=== PATIENT | male | born 1955 | race Caucasian/White ===

== ENCOUNTER 2018-05-29 09:29 | Observation (INO) | payer BC, OTHER ==
[2018-05-29] MEDS ORDERED: Nitroglycerin 0.4 MG TAB (25 Tab Bottle) ONE (09:47)
[2018-05-29 09:54] LABS: #Basophils 0.1 thou/uL (0.0-0.2); #Eosinphils 0.3 thou/uL (0.0-0.7); #Lymphocytes 1.7 thou/uL (1.20-3.40); #Monocytes 0.5 thou/uL (0.11-0.59); #Neutrophils 4.6 thou/uL (1.40-6.50); %Basophils 1.1 % (0.0-1.0); %Lymphocytes 23.4 % (21.0-51.0); %Monocytes 7.4 % (0.0-10.0); %Neutrophils 64.2 % (42.0-75.0); Hemoglobin 13.2 g/dL (14.0-18.0); Mean Corpuscular HGB CONC 32.5 g/dL (32.0-36.0); Mean Corpuscular Hemoglobin 30.3 pg (27.0-31.0); Mean Corpuscular Volume 93.2 fL (78.0-98.0); Platelet Count 283 thou/uL (130-400); RBC Distribution Width 12.8 % (11.5-14.5); Red Blood Cell (RBC) Count 4.38 mill/uL (4.70-6.10); White Blood Cell (WBC) Count 7.2 thou/uL (4.8-10.8)
[2018-05-29] MEDS ORDERED: Nitroglycerin 2% Ointment 1 INCH/1 GM Packet ONE (10:09)
[2018-05-29 10:15] LABS: ALT (SGPT) 18 U/L (8-55); AST (SGOT) 17 U/L (5-34); Albumin 3.9 g/dL (3.4-4.8); Alkaline Phosphatase 90 U/L (40-150); Anion Gap 11 mmol/L (10-20); BUN (Urea Nitrogen) 10 mg/dL (8.4-25.7); Bilirubin, Total 0.6 mg/dL (0.2-1.2); CK (CPK) 38 U/L (30-200); Calc. Creatinine Clearance 0 mL/min (70-130); Calcium 9.6 mg/dL (7.8-10.44); Carbon Dioxide 30 mmol/L (23-31); Chloride 103 mmol/L (98-107); Estimated GFR-MDRD Greater than 90; Globulin 2.7 g/dL (2.4-3.5); Glucose 121 mg/dL (80-115); Lipase 55 U/L (8-78); Potassium 4.4 mmol/L (3.5-5.1); Protein, Total 6.6 g/dL (5.8-8.1); Sodium 140 mmol/L (136-145)
[2018-05-29 10:19] LABS: Troponin I 0.012 ng/mL (< 0.028)
--- NOTE | 2018-05-29 10:23 | RAD ---
FRONTAL VIEW CHEST: Indication: Chest pain. Comparison: None. FINDINGS: There is no lobar consolidation or pneumothorax. Patchy bilateral perihilar and interstitial opacitie s are seen which may be related to edema. Cardiac silhouette is accentuated with portable technique. IMPRESSION: Patchy and interstitial bilateral perihilar opacities which may reflect edema. Correlate clinically a nd if necessary, imaging follow up may be obtained. POS: [facility]
[2018-05-29] MEDS ORDERED: Acetaminophen 325 MG TAB PO PRN ×2 (11:00→14:05)
[2018-05-29] MEDS ORDERED: Ondansetron PF 4 MG/2 ML Vial IVP PRN ×2 (11:00→14:05)
[2018-05-29] MEDS ORDERED: Ondansetron ODT 4 MG TAB SL PRN (11:00)
[2018-05-29] MEDS ORDERED: Furosemide 20 MG/2 ML VIAL ONE (11:27)
[2018-05-29] MEDS ORDERED: Fentanyl 100 MCG/2 ML VIAL ONE (12:03)
[2018-05-29 13:41] LABS: Troponin I Less than 0.010 ng/mL (< 0.028)
[2018-05-29] MEDS ORDERED: Iopamidol 370 76% 100 ML VIAL ONE (14:02)
[2018-05-29] MEDS ORDERED: Dextrose 50% Abboject 50 ML SYRINGE SLOW IVP PRN (14:05)
[2018-05-29] MEDS ORDERED: Ondansetron ODT 4 MG TAB PO PRN (14:05)
[2018-05-29] MEDS ORDERED: HYDROcodone/Acetaminophen 7.5/325 mg Tablet PO PRN (14:05)
[2018-05-29] MEDS ORDERED: Dextrose 5% in Water 1,000 ML IV PRN (14:05)
[2018-05-29] MEDS ORDERED: Insulin Regular 300 UNITS/3 ML VIAL SC PRN ×2 (14:05)
[2018-05-29] MEDS ORDERED: Nitroglycerin 0.4 MG TAB (25 Tab Bottle) PO PRN (14:05)
[2018-05-29] MEDS ORDERED: Sodium Chloride 0.9% 1,000 ML IV SCH ×2 (14:15→14:28)
[2018-05-29] MEDS ORDERED: Methocarbamol 500 MG TAB PO PRN (14:24)
--- NOTE | 2018-05-29 14:56 | HP ---
DATE OF ADMISSION: 05/29/2018 PRIMARY CARE PHYSICIAN: Alex Castellano M.D. PRIMARY NEUROSURGEON: Dr. Pedro Luis Alvarez, office phone number is [phone]. CHIEF COMPLAINT: Chest discomfort. HISTORY OF PRESENT ILLNESS: Patient is a 62-year-old male with diabetes mellitus type 2, hypertensio n, hyperlipidemia with recent cervical laminectomy, presented to the emergency room with chest discom fort. The patient underwent cervical laminectomy for cervical stenosis on 04/15/2018. He had lot of compli cations following the surgery. He was on mechanical ventilation for approximately 2 weeks. He also had some elevation in his troponin per patient report. He was discharged from the hospital on 2017. The surgery was done at [facility]. He has been doing well post-d ischarge. The patient started developing chest pressure this morning that was moderate in intensity, substernal , associated with some diaphoresis and shortness of breath. He denies any lightheadedness, dizziness , or syncope. His blood pressure was elevated in 200 range. No nausea, vomiting, palpitations repor lamont. He has not been active recently. He denies any chest discomfort at this time. No fever or chi lls reported. He denies any aggravating or relieving factors. In the emergency room, his initial vital signs showed temperature 98.1, respiration 18, pulse rate of 75, blood pressure of 171/95 with O2 saturation 95% on room air. His EKG showed sinus bradycardia w ith heart rate of [address]-T wave changes in the inferior leads. He received 20 m g IV Lasix, 25 mcg fentanyl, sublingual nitroglycerin and aspirin. A nitropatch was also placed. PAST MEDICAL HISTORY: 1. Hypertension. 2. Diabetes mellitus type 2. 3. Hyperlipidemia. 4. Obstructive sleep apnea on CPAP. 5. Cervical stenosis with recent surgery as discussed above. 6. Thyroid nodule found during the recent hospitalization. PAST SURGICAL HISTORY: 1. Cervical surgery, on 04/15. 2. Left shoulder surgery. 3. Left third finger partial amputation. ALLERGIES: PENICILLIN. CURRENT HOME MEDICATIONS: Gabapentin 300 mg 3 times a day, [place] as needed, Lantus 40 units daily, M etoprolol 12.5 mg b.i.d., Protonix 40 mg daily. FAMILY HISTORY: Patient is adopted. SOCIAL HISTORY: He drinks alcohol socially, no drug use, no smoking history. He makes his own decis ions with the help of his family. REVIEW OF SYSTEMS: The following complete review of systems was negative, unless otherwise mentioned in the HPI or below: Constitutional: Weight loss or gain, ability to conduct usual activities. Sk in: Rash, itching. Eyes: Double vision, pain. ENT/Mouth: Nose bleeding, neck stiffness, pain, te nderness. Cardiovascular: Palpitations, dyspnea on exertion, orthopnea. Respiratory: Shortness of breath, wheezing, cough, hemoptysis, fever or night sweats. Gastrointestinal: Poor appetite, abdom inal pain, heartburn, nausea, vomiting, constipation, or diarrhea. Genitourinary: Urgency, frequenc y, dysuria, nocturia. Musculoskeletal: Pain, swelling. Neurologic/Psychiatric: Anxiety, depressio n. Allergy/Immunologic: Skin rash, bleeding tendency. PHYSICAL EXAMINATION: VITAL SIGNS: As discussed above. GENERAL: A 62-year-old male in no apparent distress. HEENT: Head atraumatic, normocephalic. Sclerae are anicteric. Moist mucous membrane, no oral lesio n. NECK: Supple. Neck collar in place. LUNGS: Clear to auscultation bilaterally, no wheezing, rales or rhonchi. HEART: S1, S2 present. Regular rate and rhythm. No murmur, rubs, or gallops appreciated. ABDOMEN: Soft, nontender, bowel sounds present. EXTREMITIES: 1+ edema in bilateral lower extremities. No calf tenderness. SKIN: Warm and dry. LYMPH NODES: No palpable lymph nodes in the neck. PERIPHERAL VASCULAR: Radial pulses palpable bilaterally. MUSCULOSKELETAL: No joint swelling or tenderness. LABORATORY FINDINGS: Troponins negative. CBC showed WBC 7.2 with hemoglobin 13.2, hematocrit 40.8, platelet of 283. D-dimer 1.46. Chemistries showed sodium 140, potassium 4.4, chloride 103, bicarbon ate 30, BUN 10, creatinine 0.81. Troponin negative. BNP was 240. EKG by my review as discussed abo ve. Chest x-ray by my review showed increased bronchopulmonary markings. IMPRESSION: 1. Chest discomfort in a 62-year-old male with diabetes mellitus type 2, hypertension with recent ce rvical surgery. A D-dimer is elevated. A CT angiogram will be done to rule out pulmonary embolism. We will start him on gentle hydration. His BNP is slightly elevated. Echocardiogram was recently d one at [place]. We will request records. We will consult Cardiology. We will get a stress test in a.m. I discussed with his primary neurosurgeon, Dr. Alvarez. Dr. Alvarez is okay with antiplatele t agent for now. He would prefer to wait on a cardiac catheterization for now unless it is an emerge ncy. He is also okay with anticoagulation if CT angiogram is positive. 2. Cervical stenosis with recent cervical surgery. Plan as discussed above. 3. Chronic pain syndrome. We will resume his home pain regimen. 4. Obstructive sleep apnea. We will start him on CPAP at bedtime. 5. Diabetes mellitus type 2. We will start him on sliding scale. We will reduce Lantus dose for no w. 6. Hypertension. We will resume his home medication. 7. Hyperlipidemia. Patient is currently not on statins. 8. Gastroesophageal reflux disease. We will continue proton pump inhibitors. 9. PENICILLIN allergy. 10. Plan of care was discussed with the patient and the family in detail. They stated understanding .
[2018-05-29] MEDS ORDERED: Gabapentin 300 MG CAP PO SCH (15:00)
--- NOTE | 2018-05-29 16:06 | CT ---
CT ARTERIOGRAM CHEST WITH IV CONTRAST AND 3D MIP IMAGING 05/29/18 HISTORY: Chest pain. Elevated D-dimer. FINDINGS: There is good contrast opacification of the pulmonary arteries and thoracic aorta with normal branchi ng of the treat vessels. Calcification within the coronary arteries. No pleural fluid or pneumothorax . Within the partially visualized upper abdomen, tiny low density lesion is evident within the right liver lobe dome. Nonenlarged, nonspecific lymph nodes within the central mesentery on the inferior mo st images. IMPRESSION: No CT evidence of pulmonary embolus. Atherosclerosis. POS: [facility]
[2018-05-29 16:19] LABS: Troponin I 0.012 ng/mL (< 0.028)
[2018-05-29 16:28] VITALS: BP 164/89; TEMP 98
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
[2018-05-29 19:35] VITALS: BMI 32.5
[2018-05-29] MEDS ORDERED: Metoprolol Tartrate 25 MG TAB PO SCH (21:00)
[2018-05-29] MEDS ORDERED: Insulin Glargine 15 UNITS in Pre-Filled Syringe 1 EACH SC SCH (21:00)
[2018-05-29] MEDS ORDERED: Famotidine 20 MG TAB PO SCH (21:00)
[2018-05-30] MEDS ORDERED: Aspirin 81 mg Enteric Coated Tablet PO SCH (09:00)
[2018-05-30] MEDS ORDERED: Multivitamin W/ Minerals 1 TAB PO SCH (09:00)
[2018-05-30] MEDS ORDERED: Amlodipine 5 MG TAB PO SCH (09:00)
[2018-05-30] MEDS ORDERED: Aspirin 325 MG TAB PO SCH (09:00)
--- NOTE | 2018-05-30 09:38 | DIS ---
DATE OF ADMISSION: 05/29/2018 DATE OF DISCHARGE: 05/29/2018 BRIEF HOSPITAL COURSE: The patient is a 62-year-old male who was admitted earlier today with chest d iscomfort. Please refer to the history and physical for further details. The patient was admitted to the hospital with a diagnosis of chest discomfort, rule out acute coronar y syndrome. He underwent a CT angiogram of the chest that was negative for pulmonary embolism. He h as been started on low dose aspirin. I discussed with his primary neurosurgeon, Dr. Alvarez, who is okay with antiplatelet agent for now. The patient has a scheduled appointment with Dr. Gamble next month to discuss cardiac catheterization. He was started on low dose amlodipine with clonidine as n eeded. He appears stable for discharge.
--- NOTE | 2018-05-30 17:33 | EKG ---
Test Reason : Blood Pressure : / mmHG Vent. Rate : 059 BPM Atrial Rate : 059 BPM P-R Int : 132 ms QRS Dur : 076 ms QT Int : 400 ms P-R-T Axes : 074 007 024 degrees QTc Int : 396 ms Sinus bradycardia Nonspecific T wave abnormality - inferior Abnormal ECG Confirmed by BURTON PAREDES, POWER ([id number]), website/blog editor WESTON CARTER ([id number]) on 05/30/2018 5:33:21 PM Referred By: Confirmed By:POWER MANRIQUE MD
== END 2018-05-29 18:36 | disposition home or self-care (01) ==
LOC: ERS 09:29 → 2SW 11:46
PROVIDERS: ADMIT Internal Medicine; ATTEND Internal Medicine
DX: R07.89 Other chest pain (principal); E11.9 Type 2 diabetes mellitus without complications; E78.5 Hyperlipidemia, unspecified; G47.33 Obstructive sleep apnea (adult) (pediatric); I10 Essential (primary) hypertension; E04.1 Nontoxic single thyroid nodule; G89.4 Chronic pain syndrome; K21.9 Gastro-esophageal reflux disease without esophagitis; M48.02 Spinal stenosis, cervical region; Z79.4 Long term (current) use of insulin; Z79.899 Other long term (current) drug therapy; Z88.0 Allergy status to penicillin; Z98.890 Other specified postprocedural states; Z99.89 Dependence on other enabling machines and devices
CPT/HCPCS: 36415; 36416; 71045; 71275; 80053; 82553; 83690; 83880; 84484; 85025; 85379; 93005; 96361; 96374; 96375; G0378; J1940; J3010

== ENCOUNTER 2018-06-11 09:55 | Observation (INO) | payer BC ==
[2018-06-11] MEDS ORDERED: Fentanyl 100 MCG/2 ML VIAL ONE ×4 (10:26→22:28)
[2018-06-11] MEDS ORDERED: Adacel (T-DAP) 0.5 ML SYRINGE ONE (10:26)
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
[2018-06-11] MEDS ORDERED: Clindamycin/D5W 600 mg/50 ml Premix Bag ONE (10:53)
[2018-06-11 11:08] LABS: INR-International Normal Ratio 0.9; Prothrombin Time 12.7 SEC (12.0-14.7)
[2018-06-11 11:12] LABS: #Basophils 0.1 thou/uL (0.0-0.2); #Eosinphils 0.4 thou/uL (0.0-0.7); #Lymphocytes 1.5 thou/uL (1.20-3.40); #Monocytes 0.7 thou/uL (0.11-0.59); #Neutrophils 8.2 thou/uL (1.40-6.50); %Basophils 0.7 % (0.0-1.0); %Eosinophils 3.9 % (0.0-10.0); %Lymphocytes 13.5 % (21.0-51.0); %Monocytes 6.4 % (0.0-10.0); %Neutrophils 75.5 % (42.0-75.0); Hemoglobin 14.7 g/dL (14.0-18.0); Mean Corpuscular HGB CONC 33.3 g/dL (32.0-36.0); Mean Corpuscular Hemoglobin 30.2 pg (27.0-31.0); Mean Corpuscular Volume 90.7 fL (78.0-98.0); Mean Platelet Volume 8.7 fL (7.4-10.4); Platelet Count 259 thou/uL (130-400); RBC Distribution Width 12.2 % (11.5-14.5); Red Blood Cell (RBC) Count 4.86 mill/uL (4.70-6.10); White Blood Cell (WBC) Count 10.8 thou/uL (4.8-10.8)
[2018-06-11 11:14] LABS: PTT 22.7 SEC (22.9-36.1)
[2018-06-11 11:19] LABS: ALT (SGPT) 25 U/L (8-55); AST (SGOT) 25 U/L (5-34); Albumin 4.4 g/dL (3.4-4.8); Alkaline Phosphatase 113 U/L (40-150); Anion Gap 17 mmol/L (10-20); BUN (Urea Nitrogen) 11 mg/dL (8.4-25.7); Bilirubin, Total 0.7 mg/dL (0.2-1.2); Calc. Creatinine Clearance 0 mL/min (70-130); Carbon Dioxide 26 mmol/L (23-31); Chloride 102 mmol/L (98-107); Estimated GFR-MDRD Greater than 90; Globulin 2.6 g/dL (2.4-3.5); Glucose 161 mg/dL (80-115); Potassium 4.6 mmol/L (3.5-5.1); Sodium 140 mmol/L (136-145)
[2018-06-11 11:23] LABS: CKMB 1.7 ng/mL (0-6.6); Troponin I 0.011 ng/mL (< 0.028)
[2018-06-11] MEDS ORDERED: Ondansetron PF 4 MG/2 ML Vial ONE (12:08)
[2018-06-11] MEDS ORDERED: Morphine 4 MG/ML VIAL ONE (12:08)
[2018-06-11] MEDS ORDERED: HYDROmorphone 0.5 MG/0.5 ML SYRINGE ONE (14:23)
[2018-06-11] MEDS ORDERED: Midazolam HCl 2 mg/2 ml Vial ONE ×2 (19:20→20:10)
[2018-06-11] MEDS ORDERED: Clindamycin/D5W 900 mg/50 ml Premix Bag ONE (19:26)
[2018-06-11] MEDS ORDERED: Bacitracin Zinc Ointment 30 gm TUBE ONE (20:14)
[2018-06-11] MEDS ORDERED: Betamet Acet/Betamet Na Ph 30 MG/5 ML VIAL ONE (20:14)
[2018-06-11] MEDS ORDERED: Sodium Chloride 0.9% 50 ML ONE ×2 (20:14→22:28)
[2018-06-11] MEDS ORDERED: Bupivacaine PF 0.5% 30 ML VIAL ONE (20:14)
[2018-06-11] MEDS ORDERED: Sodium Chloride 0.9% 10 ML ONE (20:33)
[2018-06-12] MEDS ORDERED: Fentanyl 100 MCG/2 ML VIAL ONE (00:48)
[2018-06-12] MEDS ORDERED: Midazolam HCl 2 mg/2 ml Vial ONE (00:49)
[2018-06-12] MEDS ORDERED: Gentamicin 80 MG/2 ML VIAL ONE (00:57)
[2018-06-12] MEDS ORDERED: Promethazine HCl 25 MG/ML VIAL SLOW IVP PRN (02:18)
[2018-06-12] MEDS ORDERED: Ondansetron HCl/PF 4 MG/2 ML Vial IVP PRN (02:18)
[2018-06-12] MEDS ORDERED: Promethazine HCl 25 MG/ML VIAL IM PRN (02:18)
[2018-06-12] MEDS ORDERED: traMADol HCl 50 MG TAB PO PRN (02:37)
[2018-06-12] MEDS ORDERED: Acetaminophen 325 MG TAB PO PRN (02:37)
[2018-06-12] MEDS ORDERED: HYDROcodone/Acetaminophen 5/325 mg Tablet PO PRN (02:37)
[2018-06-12] MEDS ORDERED: Fentanyl 100 MCG/2 ML VIAL SLOW IVP PRN (02:37)
[2018-06-12] MEDS ORDERED: Morphine 4 MG/ML VIAL SLOW IVP PRN (02:37)
[2018-06-12] MEDS ORDERED: RENALLY ADJUST ALL ANTIBIOTICS FS SCH (02:45)
[2018-06-12 03:43] VITALS: BMI 31.1
[2018-06-12] MEDS: Ketorolac Tromethamine 30 MG/ML VIAL IVP SCH ×2 (05:21→11:50)
[2018-06-12] MEDS ORDERED: Sodium Chloride 0.9% 1,000 ML IV SCH (06:15)
--- NOTE | 2018-06-12 07:56 | RAD ---
LEFT INDEX FINGER 3 VIEWS: COMPARISON: 06/11/2018 hand exam. FINDINGS: Metal plate and multiple internal fixation screws have been placed stabilizing a comminuted fracture of the proximal phalanx of the index finger with improved position and alignment from the prior study of earlier 06/11 study. POS: [facility]
[2018-06-12] MEDS: Meperidine HCl/PF 25 MG/ML VIAL IM SCH ×2 (08:26→13:48)
[2018-06-12] MEDS ORDERED: Vancomycin HCl 750 MG in Sodium Chloride 0.9% 250 ML 250 ML IVPB SCH (09:00)
[2018-06-12] MEDS ORDERED: TETANUS AND DIPHTHERIA TOX/PF 0.5 ML DISP.SYRIN IM SCH (09:00)
[2018-06-12] MEDS ORDERED: Aspirin 81 mg Enteric Coated Tablet PO SCH (09:00)
[2018-06-12 12:21] VITALS: BP 152/90; TEMP 98.4
[2018-06-12] MEDS ORDERED: Clindamycin/D5W 900 MG in Premix Bag 1 BAG IVPB ONE (13:00)
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
--- NOTE | 2018-06-14 17:36 | EKG ---
Test Reason : Blood Pressure : / mmHG Vent. Rate : 092 BPM Atrial Rate : 092 BPM P-R Int : 132 ms QRS Dur : 076 ms QT Int : 372 ms P-R-T Axes : 032 002 020 degrees QTc Int : 460 ms Normal sinus rhythm Normal ECG Confirmed by JEFFREY CONTI ([id number]), online content editor WESTON CARTER ([id number]) on 06/14/2018 5:35:58 PM Referred By: Confirmed By:JEFFREY CONTI
== END 2018-06-12 14:47 | disposition home or self-care (01) ==
LOC: ERS 09:55 → SDC 13:21 → SJJU 06-12 03:31
PROVIDERS: ADMIT Orthopaedic Surgery Hand Surgery; ATTEND Orthopaedic Surgery Hand Surgery
PROC: 0PBV0ZZ Excision of Left Finger Phalanx, Open Approach (ICD-10-PCS; principal; 2018-06-12)
PROC: 0PSV04Z Reposition Left Finger Phalanx with Internal Fixation Device, Open Approach (ICD-10-PCS; 2018-06-12)
PROC: 0L880ZZ Division of Left Hand Tendon, Open Approach (ICD-10-PCS; 2018-06-12)
PROC: 01N60ZZ Release Radial Nerve, Open Approach (ICD-10-PCS; 2018-06-12)
DX: S62.611B Displaced fracture of proximal phalanx of left index finger, initial encounter for open fracture (principal); S62.301A Unspecified fracture of second metacarpal bone, left hand, initial encounter for closed fracture; E11.9 Type 2 diabetes mellitus without complications; E78.5 Hyperlipidemia, unspecified; I10 Essential (primary) hypertension; Z86.74 Personal history of sudden cardiac arrest; Z79.4 Long term (current) use of insulin; Z79.899 Other long term (current) drug therapy; Z88.0 Allergy status to penicillin; Z98.890 Other specified postprocedural states; W32.0XXA Accidental handgun discharge, initial encounter
CPT/HCPCS: 36416; 76001; 80053; 82553; 84484; 85025; 85610; 85730; 90471; 90715; 93005; 96361; 96365; 96372; 96375; 96376; C1713; G0378; J0702; J1170; J1580; J1885; J2175; J2250; J2270; J2405; J3010; J3370; J3490; J7050; S0020

== ENCOUNTER 2018-08-12 08:57 | Outpatient (CLI) | payer BC ==
[2018-08-12 10:03] LABS: Estimated GFR-MDRD - POC Greater than 90
--- NOTE | 2018-08-12 12:50 | MRI ---
MRI BRAIN WITH AND WITHOUT CONTRAST: TECHNIQUE: Multiplanar, multisequential imaging of the brain obtained. INDICATIONS: Cognitive impairment. FINDINGS: The ventricles have normal size and position. No evidence of restricted diffusion. No evidence of m ass or edema. No significant white matter abnormality. A few scattered white matter hyperintensitie s are seen, consistent with very mild chronic ischemic white matter change. No evidence of abnormal enhancement. The intracranial internal carotid arteries and the proximal cerebral arteries show expected flow void s. There is mucosal edema in the mastoid and petrous air cells bilaterally. The visualized paranasal si nuses appear clear. IMPRESSION: 1. Unremarkable MRI of brain. 2. Diffuse mucosal thickening involving the bilateral mastoid and petrous air cells. POS: [facility]
[2018-08-12] MEDS ORDERED: Gadobenate Dimeglumine 529 MG/1 ML (20ML VIAL) ONE (12:52)
== END 2018-08-12 08:58 | disposition home or self-care (01) ==
LOC: SCSMRI 08:57
PROVIDERS: ATTEND Psychiatry & Neurology Neurology
DX: G31.84 Mild cognitive impairment of uncertain or unknown etiology (principal); H74.93 Unspecified disorder of middle ear and mastoid, bilateral
CPT/HCPCS: 70553; 82565; A9577

== ENCOUNTER 2018-08-19 06:27 | Observation (INO) | payer BC ==
[2018-08-18 09:02] VITALS: BMI 32.1
[2018-08-19 08:07] LABS: #Basophils 0.1 thou/uL (0.0-0.2); #Eosinphils 0.4 thou/uL (0.0-0.7); #Lymphocytes 1.2 thou/uL (1.20-3.40); #Monocytes 0.5 thou/uL (0.11-0.59); %Basophils 0.9 % (0.0-1.0); %Eosinophils 6.8 % (0.0-10.0); %Lymphocytes 18.9 % (21.0-51.0); %Monocytes 8.6 % (0.0-10.0); %Neutrophils 64.8 % (42.0-75.0); Hemoglobin 8.6 g/dL (14.0-18.0); Mean Corpuscular HGB CONC 31.7 g/dL (32.0-36.0); Mean Corpuscular Hemoglobin 24.5 pg (27.0-31.0); Mean Corpuscular Volume 77.2 fL (78.0-98.0); Mean Platelet Volume 9.8 fL (7.4-10.4); Platelet Count 215 thou/uL (130-400); RBC Distribution Width 16.5 % (11.5-14.5); White Blood Cell (WBC) Count 6.2 thou/uL (4.8-10.8)
[2018-08-19] MEDS ORDERED: Midazolam HCl 2 mg/2 ml Vial ONE (08:18)
[2018-08-19 08:28] LABS: Anion Gap 15 mmol/L (10-20); BUN (Urea Nitrogen) 13 mg/dL (8.4-25.7); Calc. Creatinine Clearance 130 mL/min (70-130); Calcium 9.2 mg/dL (7.8-10.44); Carbon Dioxide 22 mmol/L (23-31); Chloride 107 mmol/L (98-107); Estimated GFR-MDRD 89; Glucose 192 mg/dL (80-115); Potassium 4.3 mmol/L (3.5-5.1); Sodium 140 mmol/L (136-145)
[2018-08-19] MEDS ORDERED: Clindamycin/D5W 600 mg/50 ml Premix Bag ONE (08:35)
[2018-08-19] MEDS ORDERED: Bupivacaine PF 0.5% 30 ML VIAL ONE ×2 (09:09→13:17)
[2018-08-19] MEDS ORDERED: Bacitracin Zinc Ointment 30 gm TUBE ONE (09:09)
[2018-08-19] MEDS ORDERED: Sodium Chloride 0.9% 10 ML ONE (09:09)
[2018-08-19] MEDS ORDERED: Fentanyl 100 MCG/2 ML VIAL ONE ×4 (10:02→15:03)
[2018-08-19] MEDS ORDERED: Thrombin 5000 UNITS/5 ML VIAL ONE (12:17)
[2018-08-19] MEDS ORDERED: Dexamethasone 4 mg/ml Vial ONE (12:23)
--- NOTE | 2018-08-19 13:46 | RAD ---
LEFT INDEX FINGER THREE VIEWS: HISTORY: Bone graft to fracture of index finger. FINDINGS/IMPRESSION: Multiple limited intraoperative fluoroscopic views of the left index finger were submitted for interp retation. The patient is status post bone graft placement in the fracture of the proximal phalanx of the index finger. Multiple screws and a plate are seen in the index finger. The donor site for the bone graft is likely from the distal radius. POS: [facility]
--- NOTE | 2018-08-19 13:54 | RAD ---
LEFT WRIST TWO VIEWS: HISTORY: Bone graft to index finger for index finger fracture. COMPARISON: None. FINDINGS/IMPRESSION: Two limited intraoperative fluoroscopic views of the left wrist were submitted for interpretation. T here is a donor site along the dorsal cortex of the distal radius for the bone graft material. POS: [facility]
[2018-08-19] MEDS ORDERED: traMADol HCl 50 MG TAB PO PRN (15:00)
[2018-08-19] MEDS ORDERED: Promethazine HCl 25 MG/ML VIAL IM PRN ×2 (15:00→19:24)
[2018-08-19] MEDS ORDERED: Communication Order-Pharmacy FS PRN (15:00)
[2018-08-19] MEDS ORDERED: Acetaminophen/Codeine 30-300mg Tablet PO PRN ×2 (15:00→16:26)
[2018-08-19] MEDS ORDERED: Acetaminophen 325 MG TAB PO PRN (15:00)
[2018-08-19] MEDS ORDERED: Morphine 4 MG/ML VIAL SLOW IVP PRN (15:00)
[2018-08-19] MEDS ORDERED: Bisacodyl 10 MG SUPP PR PRN (15:00)
[2018-08-19] MEDS ORDERED: Ondansetron PF 4 MG/2 ML Vial IV PRN (15:00)
[2018-08-19] MEDS ORDERED: Meperidine HCl/PF 25 MG/ML VIAL IM PRN (15:05)
[2018-08-19] MEDS: HYDROcodone/Acetaminophen 5/325 mg Tablet PO PRN (16:28)
[2018-08-19] MEDS ORDERED: cloNIDine 0.1 MG TAB PO PRN (16:28)
[2018-08-19] MEDS ORDERED: Fluticasone Propionate Nasal Spray 16 gm Bottle NASAL PRN (16:29)
[2018-08-19] MEDS ORDERED: Dextrose 5% in Water 1,000 ML IV PRN (16:32)
[2018-08-19] MEDS ORDERED: Dextrose 50% Abboject 50 ML SYRINGE SLOW IVP PRN (16:32)
[2018-08-19] MEDS ORDERED: HumaLOG 300 UNITS/3 ML VIAL SC PRN (16:32)
[2018-08-19] MEDS ORDERED: ePHEDrine 50 MG/ML VIAL ONE (16:44)
[2018-08-19] MEDS ORDERED: PHENYLEPHRINE-NS 100 MCG/ML 10 ML SYRINGE ONE (16:44)
[2018-08-19] MEDS ORDERED: Ondansetron PF 4 MG/2 ML Vial ONE (16:44)
[2018-08-19] MEDS ORDERED: TETANUS AND DIPHTHERIA TOX/PF 0.5 ML DISP.SYRIN IM SCH (17:00)
[2018-08-19] MEDS ORDERED: Loratadine/Pseudoephedrine 10/240 mg Tablet PO PRN (17:06)
[2018-08-19] MEDS: Vancomycin HCl 1.5 GM in Sodium Chloride 0.9% 250 ML 300 ML IVPB SCH (18:33)
[2018-08-19] MEDS ORDERED: Diazepam 10 MG/2 ML SYRINGE IM PRN (19:23)
[2018-08-19] MEDS ORDERED: Ketorolac Tromethamine 30 MG/ML VIAL IM SCH (19:30)
[2018-08-19] MEDS ORDERED: Ketorolac Tromethamine 30 MG/ML VIAL IVP SCH (19:30)
[2018-08-19] MEDS ORDERED: Diazepam 10 MG/2 ML SYRINGE IM SCH (19:30)
[2018-08-19] MEDS ORDERED: Vancomycin HCl 1 GM in Premix Bag 1 BAG IVPB SCH (21:00)
[2018-08-19] MEDS ORDERED: Aspirin 81 mg Enteric Coated Tablet PO SCH (21:00)
[2018-08-19] MEDS: Gabapentin 300 MG CAP PO SCH (21:06)
[2018-08-19] MEDS: tiZANidine HCl 4 MG TAB PO SCH (21:06)
[2018-08-19] MEDS: traZODone HCl 150 MG TAB PO SCH (21:06)
[2018-08-19] MEDS: Metoprolol Tartrate 25 MG TAB PO SCH (21:07)
[2018-08-19] MEDS: Atorvastatin Calcium 20 MG TAB PO SCH (21:07)
[2018-08-19] MEDS: diphenhydrAMINE 50 MG CAP PO SCH (21:07)
[2018-08-19] MEDS: TICAGRELOR 90 MG TABLET PO SCH (21:08)
[2018-08-19] MEDS: Pregabalin 50 MG CAP PO SCH (21:11)
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
[2018-08-20] MEDS: HYDROcodone/Acetaminophen 5/325 mg Tablet PO PRN ×2 (00:47→23:10)
[2018-08-20] MEDS: Ketorolac Tromethamine 30 MG/ML VIAL IVP SCH ×5 (00:48→23:05)
[2018-08-20 04:53] LABS: #Eosinphils 0.2 thou/uL (0.0-0.7); #Monocytes 0.8 thou/uL (0.11-0.59); #Neutrophils 4.8 thou/uL (1.40-6.50); %Basophils 0.3 % (0.0-1.0); %Eosinophils 3.3 % (0.0-10.0); %Lymphocytes 13.9 % (21.0-51.0); %Monocytes 12.1 % (0.0-10.0); %Neutrophils 70.5 % (42.0-75.0); Hemoglobin 7.1 g/dL (14.0-18.0); Mean Corpuscular HGB CONC 30.8 g/dL (32.0-36.0); Mean Corpuscular Volume 77.9 fL (78.0-98.0); Mean Platelet Volume 9.4 fL (7.4-10.4); Platelet Count 168 thou/uL (130-400); RBC Distribution Width 16.9 % (11.5-14.5); Red Blood Cell (RBC) Count 2.95 mill/uL (4.70-6.10); White Blood Cell (WBC) Count 6.8 thou/uL (4.8-10.8)
[2018-08-20] MEDS: Vancomycin HCl 1.5 GM in Sodium Chloride 0.9% 250 ML 300 ML IVPB SCH ×2 (05:27→17:32)
[2018-08-20] MEDS: Pregabalin 50 MG CAP PO SCH ×2 (05:29→14:41)
[2018-08-20] MEDS: HumaLOG 300 UNITS/3 ML VIAL SC PRN ×2 (06:25→17:32)
--- NOTE | 2018-08-20 08:11 | OP ---
DATE OF PROCEDURE: 08/19/2018 PREOPERATIVE DIAGNOSES: 1. 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 2. Multiple joint contractures. 3. Multiple tendon adhesions. 4. Angular malunion, proximal phalanx fracture. 5. Nonunion, early (delayed) as described defect above proximal phalanx. 6. Proximal phalangeal joint contracture. 7. Metacarpophalangeal joint contracture. 8. Fracture of the proximal phalanx. FINDINGS: 1. 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 2. Extensor tendon adhesions to bone and skin and plate. 3. Joint contracture, dorsal aspect proximal interphalangeal joint. 4. Joint contracture, dorsal aspect metacarpophalangeal joint. 5. Bone defect once correction of angulation occurred of approximately 6 mm in height, 4.5 mm in depth and triangle wedge shaped, and 5 mm in the length with nonunion of the putty placed in the previous gap that was less than this. ANESTHESIA: General LMA technique. [employer] SERVICE TECHNICIAN: TEE Martinez. ANESTHESIOLOGIST: Pamela Pérez Anesthesia. TOURNIQUET TIME: 103 minutes. ESTIMATED BLOOD LOSS: 50 mL. The patient anticoagulated. PROCEDURE PERFORMED: 1. Flexor tenolysis palm and proximal phalanx. 2. Extensor tenolysis, proximal phalanx. 3. Flexor tenotomy. 4. Proximal phalangeal joint dorsal capsulotomy. 5. Metacarpophalangeal joint dorsal capsulotomy. 6. Open reduction and internal fixation with plate manipulation, proximal phalanx fracture. 7. Treatment of nonunion proximal phalanx fracture with open treatment and internal fixation. 8. Major bone graft harvested via different incision from the Adria's tubercle, ipsilateral, dorsal radius. 9. Application of short-arm splint. 10. C-arm supervision. 11. Intrinsic release, radial, ulnar aspect, proximal phalanx. DESCRIPTION OF PROCEDURE: After successful general LMA technique, the limb was prepped and draped. We then outlined the surgical incision. I noticed that the patient had poor flexion as well as extension, so we felt there was both joint and flexor and extensor tendon problems. We then after giving him first 20 mL of what would be 40 total, 30 in the finger and 10 at the distal radius, 0.5% Marcaine, we exsanguinated the limb and inflated the tourniquet to 250 mmHg pressure. Next, the patient had zigzag incisions that were previously extended proximally distal ulnar dorsal and proximal ulnar palmar. We first performed dorsal separation of the dorsal extensor tenolysis on the proximal phalanx past the metacarpophalangeal joint. We used a [place] blade to separate for skin from tendon, then skin from plate. We also then reflected the tendon from inside out as we made a median tendon incision removing the old Prolene suture. Once we performed tenolysis, we noticed that the next problem was joint contracture, so we did a capsulotomy along the proximal phalangeal joint as well as on the metacarpophalangeal joint and this allowed us to now greatly increased the patient's passive motion. Because the skin was so adherent and tight on the palmar side, we then used the patient's old incision and extended it 5 cm to the palm, passed A1 and A2 andrey and distally past the A3 andrey, we would visualize A2 and we found marked adhesions of the skin which we , tendon to each other (FDS to FDP), which we debrided involved a tenotomy and then adhesed the bone and andrey. All was using vigorous sharp knife blade except for under the andrey itself, which we then gently using the blunt angled instrument. The patient then had the tendons free to the point where in the palm, we could pull the finger by pulling on the FDS and FDP to within 1 cm of touching the palm or 85 degrees PIP joint flexion. We now turned to the dorsal aspect, where we loosen the two screws proximal to the fracture, moved the plate base ulnarly, this corrected the approximately 50 degrees apex radial angulation. We held this with a clavus position and placed two screws proximal without overt penetration and had good purchase. Now, we began to work on the nonunion. We deflated the tourniquet. We were initially going to use the iliac crest, but when debrided the fracture, we noted it had three sides that had bone, and the defect was only approximately 7 x 5 mm x 4 mm, so we decided to use cancellous bone and cortical cancellous piece from Adria's tubercle. I harvested Adria's tubercle bone graft, the tourniquet inflated, the interval between the first, the second, and third dorsal compartment well on the radial side, we protected the ECR and ECB and on the ulnar side, protected the extensor pollicis longus. We then removed all soft tissue, harvested the 6 x 6 x 6 bone graft and wedge visible and trimmed it to fit the defect. We then bone grafted with cancellous around any obvious visualization of the separation, we lagged the fragment from ulnar to radial using 1.5 screws because it was 1.5 system, UXPin modular handset. The tourniquet was deflated again. We obtained hemostasis to include using thrombin. We closed the bone graft defect off periosteum and fascia with running 2-0 Vicryl, we closed the extensor tendon with interrupted 4-0 Prolene [id number] multiple sutures, but did not close the capsules. We also closed the skin at the dorsal and palmar aspect of both incisions with full nylon and no complication was seen. The dorsal skin was closed as well in this manner after closing the retinaculum with a running 2-0 Vicryl undyed. The remainder injection was given, and bulky dressing was applied with the MP joints at 60 degrees, the PIP joint at 20 degrees, and DIP 0. There was no complication. Job ID: [id number]
[2018-08-20] MEDS ORDERED: INSULIN GLARGINE HUM REC ANLOG 75 UNIT SQ SCH (09:00)
[2018-08-20] MEDS: Metoprolol Tartrate 25 MG TAB PO SCH ×2 (09:26→20:48)
[2018-08-20] MEDS: Insulin Glargine 60 UNITS in Pre-Filled Syringe 1 EACH SC SCH (09:28)
[2018-08-20] MEDS: tiZANidine HCl 4 MG TAB PO SCH ×3 (09:28→20:50)
[2018-08-20] MEDS: TICAGRELOR 90 MG TABLET PO SCH ×2 (09:28→20:50)
[2018-08-20] MEDS: Gabapentin 300 MG CAP PO SCH ×3 (09:29→20:50)
[2018-08-20] MEDS: Aspirin 81 mg Enteric Coated Tablet PO SCH (09:29)
[2018-08-20] MEDS: Meloxicam 15 MG TAB PO SCH (09:29)
[2018-08-20 12:20] LABS: Hemoglobin 7.5 g/dL (14.0-18.0)
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
[2018-08-20] MEDS: Atorvastatin Calcium 20 MG TAB PO SCH (20:48)
[2018-08-20] MEDS: diphenhydrAMINE 50 MG CAP PO SCH (20:50)
[2018-08-20] MEDS: traZODone HCl 150 MG TAB PO SCH (20:50)
[2018-08-21] MEDS: Ketorolac Tromethamine 30 MG/ML VIAL IVP SCH ×4 (05:35→23:22)
[2018-08-21] MEDS: HYDROcodone/Acetaminophen 5/325 mg Tablet PO PRN ×2 (05:47→23:22)
[2018-08-21 05:58] LABS: Hemoglobin 7.1 g/dL (14.0-18.0)
[2018-08-21 06:13] LABS: Vancomycin, Trough 13.6 ug/mL
[2018-08-21 06:18] LABS: Anion Gap 11 mmol/L (10-20); BUN (Urea Nitrogen) 20 mg/dL (8.4-25.7); Calc. Creatinine Clearance 118 mL/min (70-130); Calcium 8.6 mg/dL (7.8-10.44); Carbon Dioxide 24 mmol/L (23-31); Chloride 106 mmol/L (98-107); Estimated GFR-MDRD 79; Glucose 118 mg/dL (80-115); Potassium 3.9 mmol/L (3.5-5.1); Sodium 137 mmol/L (136-145)
[2018-08-21] MEDS: Vancomycin HCl 1.5 GM in Sodium Chloride 0.9% 250 ML 300 ML IVPB SCH ×2 (06:36→17:08)
[2018-08-21] MEDS: tiZANidine HCl 4 MG TAB PO SCH ×3 (09:09→20:52)
[2018-08-21] MEDS: Metoprolol Tartrate 25 MG TAB PO SCH ×2 (09:09→20:52)
[2018-08-21] MEDS: Gabapentin 300 MG CAP PO SCH ×3 (09:09→20:53)
[2018-08-21] MEDS: TICAGRELOR 90 MG TABLET PO SCH ×2 (09:09→20:53)
[2018-08-21] MEDS: Aspirin 81 mg Enteric Coated Tablet PO SCH (09:09)
[2018-08-21] MEDS: Insulin Glargine 60 UNITS in Pre-Filled Syringe 1 EACH SC SCH (09:10)
[2018-08-21] MEDS: Meloxicam 15 MG TAB PO SCH (09:10)
[2018-08-21] MEDS: HumaLOG 300 UNITS/3 ML VIAL SC PRN ×2 (11:12→17:10)
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
[2018-08-21] MEDS: traZODone HCl 150 MG TAB PO SCH (20:52)
[2018-08-21] MEDS: Atorvastatin Calcium 20 MG TAB PO SCH (20:53)
[2018-08-21] MEDS: diphenhydrAMINE 50 MG CAP PO SCH (20:53)
[2018-08-22] MEDS: Ketorolac Tromethamine 30 MG/ML VIAL IVP SCH ×3 (05:30→18:00)
[2018-08-22] MEDS: Vancomycin HCl 1.5 GM in Sodium Chloride 0.9% 250 ML 300 ML IVPB SCH ×2 (05:30→17:24)
[2018-08-22] MEDS: HYDROcodone/Acetaminophen 5/325 mg Tablet PO PRN ×2 (05:42→10:39)
[2018-08-22] MEDS: HumaLOG 300 UNITS/3 ML VIAL SC PRN ×2 (05:45→18:01)
[2018-08-22] MEDS: tiZANidine HCl 4 MG TAB PO SCH ×3 (09:11→21:00)
[2018-08-22] MEDS: Meloxicam 15 MG TAB PO SCH (09:11)
[2018-08-22] MEDS: Gabapentin 300 MG CAP PO SCH ×3 (09:11→20:47)
[2018-08-22] MEDS: Metoprolol Tartrate 25 MG TAB PO SCH ×2 (09:11→21:01)
[2018-08-22] MEDS: TICAGRELOR 90 MG TABLET PO SCH ×2 (09:12→20:47)
[2018-08-22] MEDS: Aspirin 81 mg Enteric Coated Tablet PO SCH (09:12)
[2018-08-22] MEDS: Insulin Glargine 60 UNITS in Pre-Filled Syringe 1 EACH SC SCH (10:09)
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
[2018-08-22 16:52] LABS: Vancomycin, Trough 22.1 ug/mL
[2018-08-22] MEDS: Vancomycin HCl 1.25 GM in Sodium Chloride 0.9% 250 ML 250 ML IVPB SCH (18:00)
[2018-08-22] MEDS: diphenhydrAMINE 50 MG CAP PO SCH (20:47)
[2018-08-22] MEDS: Atorvastatin Calcium 20 MG TAB PO SCH (20:47)
[2018-08-22] MEDS: traZODone HCl 150 MG TAB PO SCH (20:48)
[2018-08-23] MEDS: Ketorolac Tromethamine 30 MG/ML VIAL IVP SCH ×2 (00:06→05:27)
[2018-08-23] MEDS: Vancomycin HCl 1.25 GM in Sodium Chloride 0.9% 250 ML 250 ML IVPB SCH (05:33)
[2018-08-23 08:25] LABS: #Eosinphils 0.4 thou/uL (0.0-0.7); #Lymphocytes 0.7 thou/uL (1.20-3.40); #Monocytes 0.5 thou/uL (0.11-0.59); #Neutrophils 4.3 thou/uL (1.40-6.50); %Basophils 0.6 % (0.0-1.0); %Eosinophils 7.5 % (0.0-10.0); %Lymphocytes 12.3 % (21.0-51.0); %Monocytes 8.6 % (0.0-10.0); Hemoglobin 8.5 g/dL (14.0-18.0); Mean Corpuscular HGB CONC 31.2 g/dL (32.0-36.0); Mean Corpuscular Hemoglobin 24.8 pg (27.0-31.0); Mean Corpuscular Volume 79.4 fL (78.0-98.0); Mean Platelet Volume 9.7 fL (7.4-10.4); Platelet Count 157 thou/uL (130-400); RBC Distribution Width 18.1 % (11.5-14.5); Red Blood Cell (RBC) Count 3.42 mill/uL (4.70-6.10)
[2018-08-23 08:50] LABS: Anion Gap 13 mmol/L (10-20); BUN (Urea Nitrogen) 19 mg/dL (8.4-25.7); Calc. Creatinine Clearance 109 mL/min (70-130); Calcium 8.7 mg/dL (7.8-10.44); Carbon Dioxide 23 mmol/L (23-31); Chloride 109 mmol/L (98-107); Estimated GFR-MDRD 72; Glucose 121 mg/dL (80-115); Potassium 4.4 mmol/L (3.5-5.1); Sodium 141 mmol/L (136-145)
[2018-08-23] MEDS: Gabapentin 300 MG CAP PO SCH (09:47)
[2018-08-23] MEDS: TICAGRELOR 90 MG TABLET PO SCH (09:47)
[2018-08-23] MEDS: Meloxicam 15 MG TAB PO SCH (09:47)
[2018-08-23] MEDS: Metoprolol Tartrate 25 MG TAB PO SCH (09:48)
[2018-08-23] MEDS: tiZANidine HCl 4 MG TAB PO SCH (09:48)
[2018-08-23] MEDS: Aspirin 81 mg Enteric Coated Tablet PO SCH (09:49)
[2018-08-23] MEDS: Insulin Glargine 60 UNITS in Pre-Filled Syringe 1 EACH SC SCH (09:49)
[2018-08-23 11:45] VITALS: BP 120/65; TEMP 97.8
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
== END 2018-08-23 13:47 | disposition home or self-care (01) ==
LOC: SDC 06:27 → SURG A 15:37
PROVIDERS: ADMIT Orthopaedic Surgery Hand Surgery; ATTEND Orthopaedic Surgery Hand Surgery
PROC: 0LN80ZZ Release Left Hand Tendon, Open Approach (ICD-10-PCS; principal; 2018-08-19)
PROC: 0PUV07Z Supplement Left Finger Phalanx with Autologous Tissue Substitute, Open Approach (ICD-10-PCS; 2018-08-19)
PROC: 0PBJ0ZZ Excision of Left Radius, Open Approach (ICD-10-PCS; 2018-08-19)
PROC: 0RNV0ZZ Release Left Metacarpophalangeal Joint, Open Approach (ICD-10-PCS; 2018-08-19)
DX: S62.611A Displaced fracture of proximal phalanx of left index finger, initial encounter for closed fracture (principal); M24.542 Contracture, left hand; I10 Essential (primary) hypertension; I25.10 Atherosclerotic heart disease of native coronary artery without angina pectoris; E11.9 Type 2 diabetes mellitus without complications; E78.00 Pure hypercholesterolemia, unspecified; E04.1 Nontoxic single thyroid nodule; G47.30 Sleep apnea, unspecified; F41.9 Anxiety disorder, unspecified; D64.9 Anemia, unspecified; M19.90 Unspecified osteoarthritis, unspecified site; Z95.5 Presence of coronary angioplasty implant and graft; Z99.89 Dependence on other enabling machines and devices; Z87.891 Personal history of nicotine dependence; Z88.0 Allergy status to penicillin; Z79.2 Long term (current) use of antibiotics; Z79.1 Long term (current) use of non-steroidal anti-inflammatories (NSAID); Z79.82 Long term (current) use of aspirin; Z79.4 Long term (current) use of insulin; Z79.02 Long term (current) use of antithrombotics/antiplatelets; Z79.899 Other long term (current) drug therapy; Z98.890 Other specified postprocedural states; W34.00XA Accidental discharge from unspecified firearms or gun, initial encounter
CPT/HCPCS: 36415; 36416; 36430; 72040; 76000; 80048; 80202; 85014; 85018; 85025; 85652; 86850; 86900; 86901; 96365; 96372; 96375; 96376; C1713; G0378; J1100; J1825; J1885; J2175; J2250; J2270; J2405; J3010; J3370; J3490; J7050; P9016; S0020

== ENCOUNTER 2018-12-19 13:24 | Outpatient (CLI) | payer BC ==
[2018-12-19 15:20] LABS: #Basophils 0.1 thou/uL (0.0-0.2); #Eosinphils 0.2 thou/uL (0.0-0.7); #Lymphocytes 1.3 thou/uL (1.20-3.40); #Monocytes 0.6 thou/uL (0.11-0.59); #Neutrophils 4.1 thou/uL (1.40-6.50); %Eosinophils 3.2 % (0.0-10.0); %Lymphocytes 20.7 % (21.0-51.0); %Monocytes 8.9 % (0.0-10.0); %Neutrophils 66.2 % (42.0-75.0); Hemoglobin 13.6 g/dL (14.0-18.0); Mean Corpuscular HGB CONC 33.8 g/dL (32.0-36.0); Mean Corpuscular Hemoglobin 29.1 pg (27.0-31.0); Mean Corpuscular Volume 86.1 fL (78.0-98.0); Mean Platelet Volume 9.8 fL (7.4-10.4); Platelet Count 188 thou/uL (130-400); RBC Distribution Width 16.2 % (11.5-14.5); Red Blood Cell (RBC) Count 4.65 mill/uL (4.70-6.10); White Blood Cell (WBC) Count 6.2 thou/uL (4.8-10.8)
[2018-12-19 15:21] LABS: Bilirubin Negative (Negative); Blood, Urine Negative (Negative); Clarity CLEAR (Clear); Glucose, Urine (Dipstick) 500 mg/dL (Negative); Leukocyte Negative (Negative); Nitrite Negative (Negative); Protein, Urine (Dipstick) 100 mg/dL (Neg-Trace); Specific Gravity, Urine 1.025 (1.002-1.036); Urobilinogen 0.2 mg/dL (0.2-1.0)
[2018-12-19 15:22] LABS: Bacteria/HPF None Seen HPF (None Seen); Hyaline Casts/LPF 0-3 HYALINE CAST LPF (0-3 Hyaline); Pathc Cast-AUWi Flag 0.13 (0-2.49); RBC/HPF 0-3 HPF (0-3); Squamous Epithelial None Seen HPF (0-3); WBC/HPF 0-3 HPF (0-3)
[2018-12-19 15:39] LABS: Anion Gap 15 mmol/L (10-20); BUN (Urea Nitrogen) 19 mg/dL (8.4-25.7); Calc. Creatinine Clearance 0 mL/min (70-130); Calcium 9.6 mg/dL (7.8-10.44); Carbon Dioxide 27 mmol/L (23-31); Chloride 103 mmol/L (98-107); Estimated GFR-MDRD 82; Glucose 224 mg/dL (80-115); Potassium 4.4 mmol/L (3.5-5.1); Sodium 141 mmol/L (136-145)
--- NOTE | 2018-12-20 09:22 | EKG ---
Test Reason : Blood Pressure : / mmHG Vent. Rate : 061 BPM Atrial Rate : 061 BPM P-R Int : 150 ms QRS Dur : 082 ms QT Int : 430 ms P-R-T Axes : 057 011 006 degrees QTc Int : 432 ms Normal sinus rhythm Normal ECG When compared with ECG of 11-JUN-2018 10:30, Vent. rate has decreased BY 31 BPM Confirmed by JONAH PAREDES, SMaureen ([id number]) on 12/20/2018 9:22:04 AM Referred By: ROD Confirmed By:DR. Katie MCKENZIE MD
== END 2018-12-19 13:25 | disposition home or self-care (01) ==
LOC: LABBT 13:24
PROVIDERS: ATTEND Orthopaedic Surgery Hand Surgery
DX: Z01.818 Encounter for other preprocedural examination (principal); T84.84XA Pain due to internal orthopedic prosthetic devices, implants and grafts, initial encounter
CPT/HCPCS: 80048; 81001; 85025; 93005; 93010

== ENCOUNTER → 2018-12-22 | Day surgery (SDC) | payer BC ==
[2018-12-19 14:01] VITALS: BMI 32.3
[~2018-12-22] MED LIST: Bacitracin Zinc Ointment 30 gm TUBE ONE; Betamet Acet/Betamet Na Ph 30 MG/5 ML VIAL ONE; Bupivacaine PF 0.5% 30 ML VIAL ONE; Clindamycin/D5W 600 mg/50 ml Premix Bag ONE; Fentanyl 100 MCG/2 ML VIAL ONE; Midazolam HCl 2 mg/2 ml Vial ONE
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
== END ==
LOC: SDC 14:24
PROVIDERS: ATTEND Orthopaedic Surgery Hand Surgery
PROC: 0RNX0ZZ Release Left Finger Phalangeal Joint, Open Approach (ICD-10-PCS; principal; 2018-12-22)
PROC: 0KND0ZZ Release Left Hand Muscle, Open Approach (ICD-10-PCS; principal; 2018-12-22)
PROC: 0RNV0ZZ Release Left Metacarpophalangeal Joint, Open Approach (ICD-10-PCS; principal; 2018-12-22)
PROC: 0LN80ZZ Release Left Hand Tendon, Open Approach (ICD-10-PCS; principal; 2018-12-22)
DX: M24.542 Contracture, left hand (principal); M67.842 Other specified disorders of synovium, left hand; T85.848A Pain due to other internal prosthetic devices, implants and grafts, initial encounter; M19.90 Unspecified osteoarthritis, unspecified site; E78.00 Pure hypercholesterolemia, unspecified; G89.29 Other chronic pain; E11.9 Type 2 diabetes mellitus without complications; F41.9 Anxiety disorder, unspecified; Z87.81 Personal history of (healed) traumatic fracture; Z87.891 Personal history of nicotine dependence; Z88.0 Allergy status to penicillin; Z79.4 Long term (current) use of insulin; Z79.82 Long term (current) use of aspirin; Z79.899 Other long term (current) drug therapy
CPT/HCPCS: 36416; 76000; 88304; J0131; J0702; J2250; J3010; J3490; S0020

== ENCOUNTER 2019-09-04 07:49 | Outpatient (CLI) | payer BC ==
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
== END 2019-09-04 07:50 | disposition home or self-care (01) ==
LOC: SCSMRI 07:49
PROVIDERS: ATTEND Orthopaedic Surgery Hand Surgery
DX: S62.002A Unspecified fracture of navicular [scaphoid] bone of left wrist, initial encounter for closed fracture (principal)

== ENCOUNTER 2019-09-25 07:02 | Outpatient (CLI) | payer BC ==
[2019-09-25 11:24] LABS: #Eosinphils 0.3 thou/uL (0.0-0.7); #Lymphocytes 1.6 thou/uL (1.20-3.40); #Monocytes 0.4 thou/uL (0.11-0.59); #Neutrophils 3.1 thou/uL (1.40-6.50); %Basophils 0.8 % (0.0-1.0); %Eosinophils 5.1 % (0.0-10.0); %Monocytes 6.8 % (0.0-10.0); %Neutrophils 58.2 % (42.0-75.0); Hemoglobin 14.1 g/dL (14.0-18.0); Mean Corpuscular HGB CONC 34.8 g/dL (32.0-36.0); Mean Corpuscular Hemoglobin 31.3 pg (27.0-31.0); Mean Corpuscular Volume 89.9 fL (78.0-98.0); Mean Platelet Volume 8.6 fL (7.4-10.4); Platelet Count 197 thou/uL (130-400); RBC Distribution Width 12.7 % (11.5-14.5); Red Blood Cell (RBC) Count 4.49 mill/uL (4.70-6.10); White Blood Cell (WBC) Count 5.4 thou/uL (4.8-10.8)
== END 2019-09-25 07:03 | disposition home or self-care (01) ==
LOC: LABBT 07:02
PROVIDERS: ATTEND Orthopaedic Surgery Hand Surgery
DX: Z01.812 Encounter for preprocedural laboratory examination (principal); M67.432 Ganglion, left wrist
CPT/HCPCS: 85025

== ENCOUNTER 2019-09-28 13:31 | Day surgery (SDC) | payer BC ==
[2019-09-25 10:14] VITALS: BMI 30.5
[~2019-09-28 13:31] MED LIST changes: -Bacitracin Zinc Ointment 30 gm TUBE ONE; -Betamet Acet/Betamet Na Ph 30 MG/5 ML VIAL ONE; -Bupivacaine PF 0.5% 30 ML VIAL ONE; -Clindamycin/D5W 600 mg/50 ml Premix Bag ONE; +EPHEDRINE 25 MG/5 ML SYRINGE ONE; -Fentanyl 100 MCG/2 ML VIAL ONE; -Midazolam HCl 2 mg/2 ml Vial ONE; +Ondansetron PF 4 MG/2 ML Vial ONE; +PHENYLEPHRINE-NS 100 MCG/ML 10 ML SYRINGE ONE; +PROPOFOL 200 MG/20 ML VIAL ONE
[2019-09-28] MEDS ORDERED: Clindamycin/D5W 600 mg/50 ml Premix Bag ONE (13:45)
[2019-09-28] MEDS ORDERED: Betamet Acet/Betamet Na Ph 30 MG/5 ML VIAL ONE (14:57)
[2019-09-28] MEDS ORDERED: Bupivacaine PF 0.5% 30 ML VIAL ONE (14:57)
[2019-09-28] MEDS ORDERED: Sodium Chloride 0.9% 10 ML ONE (14:57)
[2019-09-28] MEDS ORDERED: Bacitracin Zinc Ointment 30 gm TUBE ONE (14:57)
[2019-09-28] MEDS ORDERED: Fentanyl 100 MCG/2 ML VIAL ONE (15:07)
[2019-09-28] MEDS ORDERED: Midazolam HCl 2 mg/2 ml Vial ONE (15:25)
[2019-09-28] MEDS ORDERED: Ketorolac Tromethamine 30 MG/ML VIAL ONE (17:02)
--- NOTE | 2019-09-28 19:46 | OP ---
DATE OF PROCEDURE: 09/28/2019 POSTOPERATIVE DIAGNOSIS: Left wrist ganglion debris-filled cyst. POSTOPERATIVE DIAGNOSES: 1. Left wrist ganglion with debris-filled cyst with hemosiderin/possible hematoma, connecting to the 4th dorsal compartment. 2. Tenosynovitis, marked at the 4th dorsal extensor compartment. PROCEDURES PERFORMED: 1. Wrist ganglion cystectomy. 2. Fourth dorsal compartment radical extensor tenosynovectomy. SPECIMENS: 1. Ganglion 2 x 1 cm with hemosiderin . 2. Tenosynovium from the tenosynovectomy, 4th dorsal compartment. BLOOD LOSS: 10 mL. TOURNIQUET TIME: 20 minutes. INJECTABLE: Celestone, 0.5% Marcaine. DESCRIPTION OF PROCEDURE: After successful general LMA technique, the limb was prepped and draped. The tourniquet was inflated after exsanguination of the limb to 250 mmHg pressure. We made a zigzag incision over the mass, where we localized via the scan, history and physical, and by patient identification in the preoperative area. The site, side, and consent matched. We then carried the incision through skin, subcutaneous tissue for 3 cm until we localized a 2 cm fullness. We found at subcutaneous at the edge of the extensor mechanism just ulnar to the 4th dorsal compartment. It was connected with the tenosynovium, thickening of the fourth dorsal compartment tendons to open the retinaculum. We then opened the floor between the 4th and 5th dorsal compartment and followed it, and did not enter the joint. We excised this mass along with hemosiderin. Then, we elevated tendons of the 4th and 5th dorsal compartments, found the 4th dorsal compartment tendons had marked tenosynovitis, so performed a radical extensor tenosynovectomy of all the tendons. A sample was sent as a specimen along with the sample hemosiderin field/debris-filled ganglion. We released the tourniquet. We closed the retinaculum, a small hole of the 4th and 5th dorsal compartment of intersection with an interrupted 3-0 Monocryl. The retinaculum was also closed over the 4th dorsal compartment. We obtained hemostasis after deflating the tourniquet, sent the specimen to the Lab, placed the Celestone over the area of tenosynovial edema, and then closed the incision for the dermis and epidermis in 1 layer with interrupted 4-0 nylon simple pattern. We finished the total injection of 10 mL of 0.5% Marcaine, placed a bulky dressing with an ulnar gutter splint. He left the operating room without evidence of anesthetic or operative complications. Job ID: [id number]
--- NOTE | 2019-09-29 11:44 | EKG ---
Test Reason : PREOP Blood Pressure : / mmHG Vent. Rate : 055 BPM Atrial Rate : 055 BPM P-R Int : 152 ms QRS Dur : 080 ms QT Int : 472 ms P-R-T Axes : 046 -02 -25 degrees QTc Int : 451 ms Sinus bradycardia Minimal voltage criteria for LVH, may be normal variant Nonspecific ST and T wave abnormality Abnormal ECG When compared with ECG of 19-DEC-2018 14:50, Nonspecific T wave abnormality now evident in Anterolateral leads Confirmed by JONAH PAREDES, SMaureen ([id number]) on 09/29/2019 11:44:20 AM Referred By: BULMARO Confirmed By:DR. Katie MCKENZIE MD
== END 2019-09-28 18:35 | disposition home or self-care (01) ==
LOC: SDC 13:31
PROVIDERS: ATTEND Orthopaedic Surgery Hand Surgery
PROC: 0LB60ZZ Excision of Left Lower Arm and Wrist Tendon, Open Approach (ICD-10-PCS; principal; 2019-09-28)
DX: M67.432 Ganglion, left wrist (principal); M65.9 Synovitis and tenosynovitis, unspecified; I10 Essential (primary) hypertension; E11.9 Type 2 diabetes mellitus without complications; E78.00 Pure hypercholesterolemia, unspecified; F41.9 Anxiety disorder, unspecified; Z79.4 Long term (current) use of insulin; Z79.82 Long term (current) use of aspirin; Z79.899 Other long term (current) drug therapy; Z87.891 Personal history of nicotine dependence; Z88.0 Allergy status to penicillin
CPT/HCPCS: 36416; 88304; 93005; 93010; J0702; J1885; J2250; J2405; J2704; J3010; J3490; S0020

== ENCOUNTER 2020-01-21 16:16 | Emergency (ER) | payer BC, OTHER ==
[2020-01-22 12:56] LABS: SARS-CoV-2 MS2 Positive; SARS-CoV-2 N Gene Negative; SARS-CoV-2 S Gene Negative; SARS-CoV-2 orf1ab Negative
== END 2020-01-21 16:58 | disposition home or self-care (01) ==
LOC: ERS 16:16
DX: Z20.828 Contact with and (suspected) exposure to other viral communicable diseases (principal); E11.9 Type 2 diabetes mellitus without complications; E78.5 Hyperlipidemia, unspecified; I10 Essential (primary) hypertension; I25.10 Atherosclerotic heart disease of native coronary artery without angina pectoris; Z87.891 Personal history of nicotine dependence
CPT/HCPCS: 87635; 99284; U0003

== ENCOUNTER 2024-03-04 15:32 | Outpatient (CLI) | payer BC ==
[~2024-03-04 15:32] MED LIST changes: -EPHEDRINE 25 MG/5 ML SYRINGE ONE; +Iopamidol 370 76% 100 ML VIAL ONE; -Ondansetron PF 4 MG/2 ML Vial ONE; -PHENYLEPHRINE-NS 100 MCG/ML 10 ML SYRINGE ONE; -PROPOFOL 200 MG/20 ML VIAL ONE
== END 2024-03-04 15:33 | disposition home or self-care (01) ==
LOC: BICCT 15:32
PROVIDERS: ATTEND Otolaryngology
DX: C06.9 Malignant neoplasm of mouth, unspecified (principal); I25.10 Atherosclerotic heart disease of native coronary artery without angina pectoris; J98.4 Other disorders of lung; K76.0 Fatty (change of) liver, not elsewhere classified; M47.819 Spondylosis without myelopathy or radiculopathy, site unspecified; R91.1 Solitary pulmonary nodule; E07.89 Other specified disorders of thyroid; Z98.1 Arthrodesis status; Z98.890 Other specified postprocedural states
CPT/HCPCS: 71260; 82565; Q9967

== ENCOUNTER 2024-04-08 20:26 | Inpatient (IN) | payer BC, MEDICARE ==
[2024-04-08 23:37] LABS: Troponin I 0.015 ng/mL (< 0.028)
[2024-04-09] MEDS ORDERED: Morphine 4 MG/ML VIAL ONE ×2 (00:08→03:14)
[2024-04-09 01:15] LABS: #Basophils 0.04 10x3/uL (0.0-0.2); %Basophils 0.6 % (0.0-1.0); %Eosinophils 4.7 % (0.0-10.0); %Lymphocytes 27.7 % (21.0-51.0); %Monocytes 8.7 % (0.0-10.0); %Neutrophils 57.8 % (42.0-75.0); Hematocrit 30.9 % (42.0-52.0); Hemoglobin 10.1 g/dL (14.0-18.0); Mean Corpuscular HGB CONC 32.7 g/dL (32.0-36.0); Mean Corpuscular Hemoglobin 29.4 pg (27.0-31.0); Mean Corpuscular Volume 90.1 fL (78.0-98.0); Mean Platelet Volume 10.6 fL (7.4-10.4); Platelet Count 245 10x3/uL (130-400); RBC Distribution Width 14.1 % (11.5-14.5); Red Blood Cell (RBC) Count 3.43 mill/uL (4.70-6.10)
[2024-04-09 01:33] LABS: ALT (SGPT) 10 U/L (8-55); AST (SGOT) 16 U/L (5-34); Albumin 3.2 g/dL (3.4-4.8); Alkaline Phosphatase 56 U/L (40-110); Anion Gap 11 mmol/L (10-20); BUN (Urea Nitrogen) 35 mg/dL (8.4-25.7); Bilirubin, Total 0.5 mg/dL (0.2-1.2); Calc. Creatinine Clearance 0 mL/min (70-130); Calcium 10.1 mg/dL (7.8-10.44); Carbon Dioxide 33 mmol/L (23-31); Chloride 98 mmol/L (98-107); Estimated GFR 44; Globulin 3.2 g/dL (2.4-3.5); Glucose 87 mg/dL (80-115); Lipase 98 U/L (8-78); Magnesium 2.1 mg/dL (1.6-2.6); Potassium 4.9 mmol/L (3.5-5.1); Protein, Total 6.4 g/dL (5.8-8.1); Sodium 137 mmol/L (136-145)
[2024-04-09 02:11] LABS: Bacteria/HPF None Seen HPF (None Seen); Bilirubin Negative (Negative); Blood, Urine Negative (Negative); CAUTI Indications for Culture Dysuria,urgency,freq; Clarity Turbid (Clear); Glucose, Urine (Dipstick) Normal (Negative); Ketone, Urine Negative (Negative); Leukocyte 75 Leu/uL (Negative); Nitrite Negative (Negative); Protein, Urine (Dipstick) 20 mg/dL (Neg-Trace); RBC/HPF 0-3 HPF (0-3); Specific Gravity, Urine 1.015 (1.002-1.036); Squamous Epithelial 0-3 HPF (0-3); Urobilinogen Normal mg/dL (Less than 2); pH, Urine 7.5 (5.0-9.0)
[2024-04-09 02:14] LABS: Urine Culture Reflex No No
[2024-04-09] MEDS ORDERED: Ondansetron ODT 4 MG TAB PO PRN (03:09)
[2024-04-09] MEDS ORDERED: Dextrose 50% Abboject 50 ML SYRINGE SLOW IVP PRN (03:09)
[2024-04-09] MEDS ORDERED: Glucagon 1 MG/ML KIT IM PRN (03:09)
[2024-04-09] MEDS ORDERED: Ondansetron PF 4 MG/2 ML Vial IVP PRN (03:09)
[2024-04-09] MEDS ORDERED: Dextrose 5% in Water 1,000 ML IV PRN (03:09)
[2024-04-09] MEDS ORDERED: Acetaminophen 650 MG Suppository PR PRN (03:09)
[2024-04-09] MEDS: Sodium Chloride 0.9% 1,000 ML IV SCH (05:03)
[2024-04-09 06:01] VITALS: BMI 27.0
[2024-04-09] MEDS: Morphine 4 MG/ML VIAL SLOW IVP PRN (06:36)
[2024-04-09] MEDS: Enoxaparin 40 MG (0.4 mL) SYRINGE SC SCH (08:59)
[2024-04-09] MEDS: Aspirin 81 mg Enteric Coated Tablet PO SCH (08:59)
[2024-04-09] MEDS ORDERED: Ibuprofen 800 MG TAB PO PRN (09:35)
[2024-04-09] MEDS: BuPROPion XL 150 MG ER.TAB PO SCH (10:09)
[2024-04-09] MEDS: tiZANidine HCl 4 MG TAB PO PRN (10:10)
[2024-04-09] MEDS: HYDROcodone/Acetaminophen 10/325 mg Tablet PO PRN (10:10)
[2024-04-09 13:05] VITALS: BMI 27.0
[2024-04-09] MEDS: Gabapentin 300 MG CAP PO SCH (14:21)
[2024-04-09] MEDS: Acetaminophen 325 MG TAB PO PRN (14:22)
[2024-04-09] MEDS: Metoprolol Tartrate 25 MG TAB PO SCH (20:13)
[2024-04-09] MEDS: traZODone HCl 150 MG TAB PO SCH (20:13)
[2024-04-10 06:17] LABS: #Basophils 0.03 10x3/uL (0.0-0.2); %Basophils 0.4 % (0.0-1.0); %Lymphocytes 23.5 % (21.0-51.0); %Monocytes 9.4 % (0.0-10.0); %Neutrophils 63.1 % (42.0-75.0); Hematocrit 33.5 % (42.0-52.0); Mean Corpuscular HGB CONC 32.8 g/dL (32.0-36.0); Mean Corpuscular Hemoglobin 29.6 pg (27.0-31.0); Mean Corpuscular Volume 90.3 fL (78.0-98.0); Mean Platelet Volume 10.8 fL (7.4-10.4); Platelet Count 254 10x3/uL (130-400); RBC Distribution Width 13.8 % (11.5-14.5); Red Blood Cell (RBC) Count 3.71 mill/uL (4.70-6.10)
[2024-04-10 06:29] LABS: Anion Gap 12 mmol/L (10-20); BUN (Urea Nitrogen) 17 mg/dL (8.4-25.7); Calc. Creatinine Clearance 94 mL/min (70-130); Calcium 9.6 mg/dL (7.8-10.44); Carbon Dioxide 25 mmol/L (23-31); Chloride 107 mmol/L (98-107); Estimated GFR 86; Glucose 130 mg/dL (80-115); Potassium 4.1 mmol/L (3.5-5.1); Sodium 140 mmol/L (136-145)
[2024-04-10] MEDS: BuPROPion XL 150 MG ER.TAB PO SCH (08:20)
[2024-04-10] MEDS: Meloxicam 15 MG TAB PO SCH (08:20)
[2024-04-10] MEDS: Pantoprazole DR 40 MG TAB PO SCH (08:20)
[2024-04-10] MEDS ORDERED: Clindamycin/D5W 900 mg/50 ml Premix Bag ONE (10:49)
[2024-04-10] MEDS ORDERED: LevoFLOXacin D5W 500 mg (100 mL) BAG ONE (10:49)
[2024-04-10] MEDS ORDERED: Lidocaine 2% PF 5 ML VIAL ONE (10:55)
[2024-04-10] MEDS ORDERED: PROPOFOL 20 ML ONE ×2 (10:55→11:19)
[2024-04-10] MEDS: hydrALAZINE 20 MG/ML VIAL SLOW IVP SCH ×2 (12:45→15:47)
[2024-04-10] MEDS ORDERED: Iopamidol 370 76% 100 ML VIAL ONE (13:39)
[2024-04-10] MEDS: Morphine 2 MG/ML VIAL SLOW IVP SCH (19:46)
[2024-04-10] MEDS: Pantoprazole 40 MG VIAL IVP SCH (19:57)
[2024-04-11 06:54] LABS: Anion Gap 12 mmol/L (10-20); BUN (Urea Nitrogen) 13 mg/dL (8.4-25.7); Calc. Creatinine Clearance 108 mL/min (70-130); Calcium 9.1 mg/dL (7.8-10.44); Carbon Dioxide 22 mmol/L (23-31); Chloride 110 mmol/L (98-107); Estimated GFR 95; Glucose 100 mg/dL (80-115); Magnesium 1.7 mg/dL (1.6-2.6); Phosphorus 2.5 mg/dL (2.3-4.7); Potassium 3.8 mmol/L (3.5-5.1); Sodium 140 mmol/L (136-145)
[2024-04-11] MEDS: Polyethylene Glycol 3350 17 GM Packet PER TUBE SCH (08:36)
[2024-04-12 11:36] LABS: #Basophils 0.05 10x3/uL (0.0-0.2); %Basophils 0.4 % (0.0-1.0); %Eosinophils 2.2 % (0.0-10.0); %Lymphocytes 8.6 % (21.0-51.0); %Neutrophils 79.1 % (42.0-75.0); Hematocrit 33.8 % (42.0-52.0); Hemoglobin 10.9 g/dL (14.0-18.0); Mean Corpuscular HGB CONC 32.2 g/dL (32.0-36.0); Mean Corpuscular Hemoglobin 29.2 pg (27.0-31.0); Mean Corpuscular Volume 90.6 fL (78.0-98.0); Mean Platelet Volume 10.7 fL (7.4-10.4); Platelet Count 263 10x3/uL (130-400); RBC Distribution Width 14.1 % (11.5-14.5); Red Blood Cell (RBC) Count 3.73 mill/uL (4.70-6.10)
[2024-04-12 11:53] LABS: Anion Gap 12 mmol/L (10-20); BUN (Urea Nitrogen) 15 mg/dL (8.4-25.7); Calc. Creatinine Clearance 103 mL/min (70-130); Calcium 9.4 mg/dL (7.8-10.44); Carbon Dioxide 24 mmol/L (23-31); Chloride 104 mmol/L (98-107); Estimated GFR 94; Glucose 203 mg/dL (80-115); Magnesium 1.7 mg/dL (1.6-2.6); Phosphorus 2.2 mg/dL (2.3-4.7); Potassium 4.1 mmol/L (3.5-5.1); Sodium 136 mmol/L (136-145)
[2024-04-13 06:18] LABS: #Basophils 0.04 10x3/uL (0.0-0.2); %Basophils 0.4 % (0.0-1.0); %Eosinophils 2.9 % (0.0-10.0); %Lymphocytes 17.3 % (21.0-51.0); %Monocytes 10.4 % (0.0-10.0); %Neutrophils 68.2 % (42.0-75.0); Hematocrit 30.7 % (42.0-52.0); Mean Corpuscular HGB CONC 32.6 g/dL (32.0-36.0); Mean Corpuscular Hemoglobin 29.2 pg (27.0-31.0); Mean Corpuscular Volume 89.8 fL (78.0-98.0); Platelet Count 239 10x3/uL (130-400); RBC Distribution Width 14.2 % (11.5-14.5); Red Blood Cell (RBC) Count 3.42 mill/uL (4.70-6.10)
[2024-04-13 06:25] LABS: Anion Gap 13 mmol/L (10-20); BUN (Urea Nitrogen) 16 mg/dL (8.4-25.7); Calc. Creatinine Clearance 104 mL/min (70-130); Calcium 9.3 mg/dL (7.8-10.44); Carbon Dioxide 26 mmol/L (23-31); Chloride 104 mmol/L (98-107); Estimated GFR 94; Glucose 152 mg/dL (80-115); Phosphorus 2.6 mg/dL (2.3-4.7); Potassium 3.8 mmol/L (3.5-5.1); Sodium 139 mmol/L (136-145)
[2024-04-14 08:59] LABS: #Basophils 0.07 10x3/uL (0.0-0.2); %Basophils 0.8 % (0.0-1.0); %Eosinophils 4.5 % (0.0-10.0); %Lymphocytes 14.6 % (21.0-51.0); %Monocytes 7.4 % (0.0-10.0); %Neutrophils 71.8 % (42.0-75.0); Hematocrit 32.1 % (42.0-52.0); Hemoglobin 10.5 g/dL (14.0-18.0); Mean Corpuscular HGB CONC 32.7 g/dL (32.0-36.0); Mean Corpuscular Hemoglobin 29.4 pg (27.0-31.0); Mean Corpuscular Volume 89.9 fL (78.0-98.0); Mean Platelet Volume 10.5 fL (7.4-10.4); Platelet Count 265 10x3/uL (130-400); RBC Distribution Width 14.1 % (11.5-14.5); Red Blood Cell (RBC) Count 3.57 mill/uL (4.70-6.10)
[2024-04-14 09:32] LABS: Anion Gap 13 mmol/L (10-20); BUN (Urea Nitrogen) 15 mg/dL (8.4-25.7); Calc. Creatinine Clearance 110 mL/min (70-130); Calcium 9.6 mg/dL (7.8-10.44); Carbon Dioxide 27 mmol/L (23-31); Chloride 104 mmol/L (98-107); Estimated GFR 96; Glucose 161 mg/dL (80-115); Magnesium 1.9 mg/dL (1.6-2.6); Phosphorus 2.8 mg/dL (2.3-4.7); Potassium 4.1 mmol/L (3.5-5.1); Sodium 140 mmol/L (136-145)
[2024-04-14] MEDS: Insulin Lispro 100 UNIT/ML 10 ML VIAL SC PRN (12:55)
[2024-04-16] MEDS: Insulin Lispro 100 UNIT/ML 10 ML VIAL SC PRN (21:43)
[2024-04-17 16:38] VITALS: BP 159/93; TEMP 97.3
== END 2024-04-17 19:25 | disposition home or self-care (01) | DRG 314 ==
LOC: ERS 20:26 → T4-B 04-09 02:33 → OBSVTOIN 04-09 16:45
PROVIDERS: ADMIT Student in an Organized Health Care Education/Training Program; ATTEND Student in an Organized Health Care Education/Training Program
DX: I95.9 Hypotension, unspecified (principal); G93.41 Metabolic encephalopathy; N17.9 Acute kidney failure, unspecified; E86.0 Dehydration; E86.1 Hypovolemia; N18.9 Chronic kidney disease, unspecified; D00.00 Carcinoma in situ of oral cavity, unspecified site; I12.9 Hypertensive chronic kidney disease with stage 1 through stage 4 chronic kidney disease, or unspecified chronic kidney disease; E11.22 Type 2 diabetes mellitus with diabetic chronic kidney disease; I25.10 Atherosclerotic heart disease of native coronary artery without angina pectoris; G89.29 Other chronic pain; R13.12 Dysphagia, oropharyngeal phase; Z88.0 Allergy status to penicillin; Z98.890 Other specified postprocedural states; Z95.818 Presence of other cardiac implants and grafts; Z87.891 Personal history of nicotine dependence; F41.9 Anxiety disorder, unspecified; F32.A Depression, unspecified
CPT/HCPCS: 36415; 36416; 70450; 71045; 77014; 77333; 77334; 80048; 80053; 81001; 83605; 83690; 83735; 84100; 84484; 85025; 87040; 87086; 88305; 88342; 93005; 96374; 96376; 97139; B4087; J0360; J1650; J1815; J1956; J2001; J2272; J2470; J2704; J3490; J7030; Q9967

== ENCOUNTER 2024-05-04 13:40 | Emergency (ER) | payer BC | END 2024-05-04 15:50 | disposition home or self-care (01) | LOC: ERS 13:40 | DX: M79.674 Pain in right toe(s) (principal); E11.9 Type 2 diabetes mellitus without complications; I10 Essential (primary) hypertension; I25.10 Atherosclerotic heart disease of native coronary artery without angina pectoris; Z87.891 Personal history of nicotine dependence; Z89.022 Acquired absence of left finger(s) | CPT/HCPCS: 99283 ==

== ENCOUNTER 2024-05-13 15:39 | Emergency (ER) | payer BC ==
[~2024-05-13 15:39] MED LIST changes: -Iopamidol 370 76% 100 ML VIAL ONE; +Iopamidol-370 76% 500 ML MDV (1 ML CHARGE) ONE
[2024-05-13 16:36] LABS: #Basophils 0.05 10x3/uL (0.0-0.2); %Basophils 0.9 % (0.0-1.0); %Eosinophils 3.5 % (0.0-10.0); %Lymphocytes 10.6 % (21.0-51.0); %Monocytes 10.6 % (0.0-10.0); %Neutrophils 74.1 % (42.0-75.0); Hematocrit 36.4 % (42.0-52.0); Hemoglobin 11.7 g/dL (14.0-18.0); Mean Corpuscular HGB CONC 32.1 g/dL (32.0-36.0); Mean Corpuscular Hemoglobin 28.5 pg (27.0-31.0); Mean Corpuscular Volume 88.8 fL (78.0-98.0); Mean Platelet Volume 10.4 fL (7.4-10.4); Platelet Count 211 10x3/uL (130-400); RBC Distribution Width 14.1 % (11.5-14.5)
[2024-05-13 16:38] LABS: INR-International Normal Ratio 1.1; PTT 24.3 sec (22.9-36.1); Prothrombin Time 14.3 sec (12.0-14.7)
[2024-05-13 16:42] LABS: ALT (SGPT) 10 U/L (8-55); AST (SGOT) 14 U/L (5-34); Albumin 3.6 g/dL (3.4-4.8); Alkaline Phosphatase 55 U/L (40-110); Anion Gap 11 mmol/L (10-20); BUN (Urea Nitrogen) 34 mg/dL (8.4-25.7); Bilirubin, Total 0.3 mg/dL (0.2-1.2); Calc. Creatinine Clearance 0 mL/min (70-130); Calcium 9.8 mg/dL (7.8-10.44); Carbon Dioxide 29 mmol/L (23-31); Chloride 100 mmol/L (98-107); Estimated GFR 81; Globulin 3.2 g/dL (2.4-3.5); Glucose 125 mg/dL (80-115); Lipase 133 U/L (8-78); Magnesium 2.4 mg/dL (1.6-2.6); Potassium 4.8 mmol/L (3.5-5.1); Protein, Total 6.8 g/dL (5.8-8.1); Sodium 135 mmol/L (136-145)
[2024-05-13 16:47] LABS: Troponin I Less than 0.010 ng/mL (< 0.028)
[2024-05-13 19:35] LABS: Bacteria/HPF None Seen HPF (None Seen); Bilirubin Negative (Negative); Blood, Urine Negative (Negative); CAUTI Indications for Culture Dysuria,urgency,freq; Clarity Clear (Clear); Glucose, Urine (Dipstick) Normal (Negative); Ketone, Urine Negative (Negative); Leukocyte Negative Leu/uL (Negative); Nitrite Negative (Negative); Protein, Urine (Dipstick) 20 mg/dL (Neg-Trace); RBC/HPF 0-3 HPF (0-3); Squamous Epithelial None Seen HPF (0-3); Urobilinogen Normal mg/dL (Less than 2); WBC/HPF 0-3 HPF (0-3)
[2024-05-13 19:39] LABS: Urine Culture Reflex No No
[2024-05-13] MEDS ORDERED: Morphine 4 MG/ML VIAL ONE (20:30)
== END 2024-05-13 21:06 | disposition home or self-care (01) ==
LOC: ERS 15:39
DX: I95.9 Hypotension, unspecified (principal); G89.29 Other chronic pain; D64.9 Anemia, unspecified; I10 Essential (primary) hypertension; E11.9 Type 2 diabetes mellitus without complications; E78.5 Hyperlipidemia, unspecified; I25.10 Atherosclerotic heart disease of native coronary artery without angina pectoris; Z79.4 Long term (current) use of insulin; Z79.899 Other long term (current) drug therapy; Z87.891 Personal history of nicotine dependence
CPT/HCPCS: 36416; 70450; 71045; 71275; 74177; 80053; 81001; 83605; 83690; 83735; 83880; 84484; 85025; 85379; 85610; 85730; 86850; 86900; 86901; 87040; 87077; 87086; 87186; 93005; 94760; 96361; 96374; J2272; Q9967

== ENCOUNTER 2025-01-13 16:02 | Outpatient (CLI) | payer MEDICARE, OTHER | END 2025-01-13 16:03 | disposition home or self-care (01) | LOC: ULT 16:02 | PROVIDERS: ATTEND Otolaryngology | DX: E04.2 Nontoxic multinodular goiter (principal) | CPT/HCPCS: 76536 ==

== ENCOUNTER 2025-02-08 12:49 | Day surgery (SDC) | payer MEDICARE, OTHER ==
[2025-02-08] MEDS ORDERED: Lidocaine 1% PF 5 ML VIAL ONE (12:53)
[2025-02-08] MEDS ORDERED: Sodium Bicarbonate 2.5 MEQ/5 ML SDV ONE (12:53)
== END 2025-02-08 15:10 | disposition home or self-care (01) ==
LOC: ULT 12:49
PROVIDERS: ATTEND Otolaryngology
PROC: 0G9H3ZX Drainage of Right Thyroid Gland Lobe, Percutaneous Approach, Diagnostic (ICD-10-PCS; principal; 2025-02-08)
DX: E04.1 Nontoxic single thyroid nodule (principal)
CPT/HCPCS: 10005

== ENCOUNTER 2025-02-21 20:26 | Observation (INO) | payer MEDICARE, OTHER ==
[~2025-02-21 20:26] MED LIST changes: +Iopamidol 370 76% 100 ML VIAL ONE; -Iopamidol-370 76% 500 ML MDV (1 ML CHARGE) ONE
[2025-02-21 21:21] LABS: #Basophils 0.05 10x3/uL (0.0-0.2); #Eosinophils 0.10 10x3/uL (0.0-0.7); #Monocytes 0.54 10x3/uL (0.11-0.59); #Neutrophils 6.58 10x3/uL (1.40-6.50); %Basophils 0.6 % (0.0-1.0); %Eosinophils 1.3 % (0.0-10.0); %Lymphocytes 7.5 % (21.0-51.0); %Monocytes 6.9 % (0.0-10.0); %Neutrophils 83.4 % (42.0-75.0); Hematocrit 42.3 % (42.0-52.0); Hemoglobin 14.2 g/dL (14.0-18.0); Mean Corpuscular Hemoglobin 31.2 pg (27.0-31.0); Mean Corpuscular Volume 93.0 fL (78.0-98.0); Platelet Count 210 10x3/uL (130-400); Red Blood Cell (RBC) Count 4.55 mill/uL (4.70-6.10); White Blood Cell (WBC) Count 7.88 10x3/uL (4.8-10.8)
[2025-02-21] MEDS ORDERED: HYDROcodone/Acetaminophen 10/325 mg Tablet ONE (21:56)
[2025-02-21 22:04] LABS: ALT (SGPT) 33 U/L (Less than 45); AST (SGOT) 39 U/L (11-34); Albumin 4.3 g/dL (3.1-4.5); Alkaline Phosphatase 52 U/L (40-110); Anion Gap 16 mmol/L (10-20); BUN (Urea Nitrogen) 15 mg/dL (8.4-25.7); Bilirubin, Total 0.4 mg/dL (0.3-1.2); Calc. Creatinine Clearance 0 mL/min (70-130); Calcium 10.2 mg/dL (7.8-10.44); Carbon Dioxide 24 mmol/L (23-31); Chloride 104 mmol/L (98-107); Globulin 3.1 g/dL (2.4-3.5); Glucose 259 mg/dL (80-115); Potassium 4.2 mmol/L (3.5-5.1); Sodium 140 mmol/L (136-145)
[2025-02-21 22:42] LABS: Lipase 36 U/L (8-78); Magnesium 1.9 mg/dL (1.6-2.6)
[2025-02-22 02:10] VITALS: BMI 27.1
[2025-02-22] MEDS ORDERED: Dextrose 50% Abboject 50 ML SYRINGE SLOW IVP PRN (02:27)
[2025-02-22] MEDS ORDERED: Ondansetron PF 4 MG/2 ML Vial IVP PRN (02:27)
[2025-02-22] MEDS ORDERED: Acetaminophen 325 MG TAB PO PRN (02:27)
[2025-02-22] MEDS ORDERED: Glucagon 1 MG/ML KIT IM PRN (02:27)
[2025-02-22 03:03] LABS: #Basophils 0.05 10x3/uL (0.0-0.2); #Eosinophils 0.07 10x3/uL (0.0-0.7); #Monocytes 0.64 10x3/uL (0.11-0.59); #Neutrophils 4.47 10x3/uL (1.40-6.50); %Basophils 0.8 % (0.0-1.0); %Eosinophils 1.1 % (0.0-10.0); %Lymphocytes 14.0 % (21.0-51.0); %Monocytes 10.5 % (0.0-10.0); %Neutrophils 73.4 % (42.0-75.0); Hematocrit 35.0 % (42.0-52.0); Hemoglobin 12.0 g/dL (14.0-18.0); Mean Corpuscular Hemoglobin 31.3 pg (27.0-31.0); Mean Corpuscular Volume 91.1 fL (78.0-98.0); Platelet Count 176 10x3/uL (130-400); Red Blood Cell (RBC) Count 3.84 mill/uL (4.70-6.10); White Blood Cell (WBC) Count 6.09 10x3/uL (4.8-10.8)
[2025-02-22 03:34] LABS: Anion Gap 13 mmol/L (10-20); BUN (Urea Nitrogen) 13 mg/dL (8.4-25.7); Calc. Creatinine Clearance 86 mL/min (70-130); Calcium 9.1 mg/dL (7.8-10.44); Carbon Dioxide 25 mmol/L (23-31); Chloride 104 mmol/L (98-107); Glucose 136 mg/dL (80-115); Potassium 4.0 mmol/L (3.5-5.1); Sodium 138 mmol/L (136-145)
[2025-02-22] MEDS ORDERED: PROPOFOL 20 ML ONE (09:00)
[2025-02-22] MEDS ORDERED: Lidocaine 1% PF 5 ML VIAL ONE (09:13)
[2025-02-22] MEDS ORDERED: PROPOFOL 200 MG/20 ML VIAL ONE (09:21)
[2025-02-22 15:02] VITALS: BMI 27.1
[2025-02-22 18:45] VITALS: BP 165/93; TEMP 98
[2025-02-23] MEDS ORDERED: Lansoprazole 30 MG/10 ML UDCUP PER TUBE SCH (09:00)
== END 2025-02-22 18:40 | disposition home or self-care (01) ==
LOC: ERS 20:26 → SURG A 02-22 00:20
PROVIDERS: ADMIT Internal Medicine; ATTEND Family Medicine
PROC: 0DJ08ZZ Inspection of Upper Intestinal Tract, Via Natural or Artificial Opening Endoscopic (ICD-10-PCS; principal; 2025-02-22)
DX: K29.70 Gastritis, unspecified, without bleeding (principal); I10 Essential (primary) hypertension; I25.10 Atherosclerotic heart disease of native coronary artery without angina pectoris; E11.9 Type 2 diabetes mellitus without complications; E78.5 Hyperlipidemia, unspecified; D64.9 Anemia, unspecified; C06.9 Malignant neoplasm of mouth, unspecified; G89.4 Chronic pain syndrome; Z87.891 Personal history of nicotine dependence; Z88.0 Allergy status to penicillin; Z79.4 Long term (current) use of insulin; Z79.899 Other long term (current) drug therapy
CPT/HCPCS: 43235; 74177; 80048; 80053; 82962; 83605 ×2; 83690; 83735; 85025 ×2; 86850; 86900; 86901; 96374; 99285; B4087; G0378 ×2; J2270; J2704; Q9967; 36415; 36416

== ENCOUNTER 2025-03-03 10:55 | Outpatient (CLI) | payer MEDICARE, OTHER | END 2025-03-03 10:56 | disposition home or self-care (01) | LOC: RAD 10:55 | PROVIDERS: ATTEND Radiology Radiation Oncology | DX: R13.19 Other dysphagia (principal); C06.9 Malignant neoplasm of mouth, unspecified | CPT/HCPCS: 74230 ==

== ENCOUNTER 2025-03-26 12:28 | Outpatient (CLI) | payer MEDICARE, OTHER | END 2025-03-26 12:29 | disposition home or self-care (01) | LOC: CT 12:28 | PROVIDERS: ATTEND Radiology Radiation Oncology | DX: C04.1 Malignant neoplasm of lateral floor of mouth (principal) | CPT/HCPCS: 70491; 71260; Q9967 ==